=== PATIENT | male | born 1975 | race Caucasian/White ===

== ENCOUNTER 2017-03-04 07:12 | Emergency (ER) | payer OTHER ==
[2017-03-04 07:18] VITALS: TEMP 97.9
--- NOTE | 2017-03-04 07:32 | EDPHY ---
H & P Time Seen by Provider: 03/04/17 07:19 HPI/ROS: CHIEF COMPLAINT: Abdominal pain HISTORY OF PRESENT ILLNESS: Otherwise healthy, no previous abdominal surgeries. Developed pain in the right flank on Friday and then yesterday felt well. Today as pain in the right lower quadrant not better worse with movement or oral intake. Moderate severity, 6/10. Had some nausea and vomiting on Friday. Of note he felt like yesterday he had urinary urgency and frequency but no dysuria and hematuria associated. Pain does not radiate to the groin or testicles. REVIEW OF SYSTEMS: Eye: no change in vision ENT: no sore throat Cardiac: no chest pain or syncope Pulmonary: no cough or SOB Abdomen: HPI Musculoskeletal: HPI Skin: no rash Neuro: no headache Constitutional: no fever : no urinary symptoms A comprehensive 10 point review of systems is otherwise negative aside from elements mentioned in the history of present illness. PAST MEDICAL HISTORY: Negative Social history: Nonsmoker, no family history of kidney stones. General Appearance: Alert and conversant, cooperative. Eyes: No scleral icterus. ENT, Mouth: Normal mucous membranes. Respiratory: Normal respiratory effort, breath sounds equal, lungs are clear to auscultation. Cardiovascular: Regular rate and rhythm. Gastrointestinal: Abdomen is soft and non tender. No pulsatile mass, no hernia. No McBurney's point tenderness. Neurological: Alert and oriented x3. Normally conversant. Face symmetric, normal movement and sensation in all extremities. Skin: Warm and dry, no rashes. Musculoskeletal: No peripheral edema and no joint swelling. Psychiatric: Not agitated. Emergency Department course/MDM: I-STAT, Toradol 15 mg IV, CT scanning to evaluate for renal colic. 1001: 2 mm right UVJ stone with hydronephrosis per Dr. Vanegas. 1042: Re-examined, feels fine, stable for discharge. Smoking Status: Never smoked Constitutional: Initial Vital Signs Temperature (C) 36.6 C 03/04/17 07:16 Heart Rate 79 03/04/17 07:16 Respiratory Rate 17 03/04/17 07:16 Blood Pressure 162/111 H 03/04/17 07:16 O2 Sat (%) 97 03/04/17 07:16 O2 Delivery Mode Room Air Allergies/Adverse Reactions: No Known Allergies Allergy (Verified 03/04/17 07:15) Home Medications: Medication Instructions Recorded Hydrocodone/APAP [[place] 1 - 2 tab PO Q4-6PRN PRN #7 tab 03/04/17 5/325] Medical Decision Making - Diagnostics Imaging Results: Imaging Impressions Abdomen/Pelvis CT 03/04/17 07:30 Impression: 2 mm distal right ureteral stone near the ureterovesical junction, causing mild obstruction. Findings discussed with Pillo Colmenares at 1010 hours 03/04/2017. Final report concurs with initial preliminary interpretation. Attention: This examination does not use radiographic contrast, and as such, provides only a limited evaluation of the abdomen, pelvis, and retroperitoneum. If there is further clinical suspicion for pathological conditions, a complete CT evaluation of the abdomen and pelvis utilizing intravenous, oral, and rectal contrast should be considered. Differential Diagnosis: Differential diagnosis considered for abdominal pain including but not limited to renal colic, appendicitis, cholecystitis, pancreatitis, gastritis and urinary tract infection. - Data Points Laboratory Results: 03/04/17 03/04/17 07:30 07:23 POC Hgb 17.3 gm/dL gm/dL (13.7-17.5) POC Hct 51 % % (40-51) POC Sodium 144 mEq/L mEq/L (134-144) POC Potassium 3.3 mEq/L mEq/L (3.3-5.0) POC Chloride 98 mEq/L mEq/L (97-110) POC BUN 24 mg/dL H mg/dL (7-23) POC Creatinine 1.2 mg/dL mg/dL (0.7-1.3) POC Glucose 110 mg/dL H mg/dL (70-100) Urine Color YELLOW Urine Appearance CLEAR Urine pH 5.0 (5.0-7.5) Ur Specific [place] 1.028 (1.002-1.030) Urine Protein NEGATIVE (NEGATIVE) Urine Ketones NEGATIVE (NEGATIVE) Urine Blood 1+ H (NEGATIVE) Urine Nitrate NEGATIVE (NEGATIVE) Urine Bilirubin NEGATIVE (NEGATIVE) Urine Urobilinogen NEGATIVE EU EU (0.2-1.0) Ur Leukocyte Esterase NEGATIVE (NEGATIVE) Urine RBC 5-10 /hpf H /hpf (0-3) Urine WBC 5-10 /hpf H /hpf (0-3) Ur Epithelial Cells TRACE /lpf /lpf (NONE-1+) Urine Mucus 1+ /lpf /lpf (NONE-1+) Urine Glucose NEGATIVE (NEGATIVE) Medications Given: Discontinued Medications Ketorolac Tromethamine (Toradol) 15 mg IVP EDNOW ONE Stop: 03/04/17 07:46 Last Admin: 03/04/17 07:50 Dose: 15 mg Point of Care Test Results: 03/04/17 07:23 POC Sodium 144 POC Potassium 3.3 POC Chloride 98 POC BUN 24 H POC Creatinine 1.2 POC Glucose 110 H Departure - Departure Disposition: Home, Routine, Self-Care Clinical Impression: Renal colic on right side Condition: Good Instructions: Hydrocodone/Acetaminophen (By mouth), Renal Colic (ED) Referrals: Jenni Hart MD [[facility] [place] Primary Care Provider] - As per Instructions (primary care) Darion Santos MD [Medical Doctor] - As per Instructions (urology) Prescriptions: Hydrocodone/APAP 5/325 [[place] 5/325] 1 - 2 tab PO Q4-6PRN PRN #7 tab PRN Reason: For Pain
[2017-03-04] MEDS ORDERED: KETOROLAC 30 MG/1 ML SDV IVP ONE (07:45)
[2017-03-04 08:06] LABS: COLOR YELLOW; LEUKOCYTE ESTERASE,URINE NEGATIVE (NEGATIVE); NITRITE,URINE NEGATIVE (NEGATIVE)
[2017-03-04 08:55] VITALS: O2SAT 96
[2017-03-04 09:11] LABS: MUCUS 1+ /lpf (NONE-1+)
[2017-03-04 10:55] VITALS: BP 144/76; PULSE 82; RESP 18
== END 2017-03-04 10:55 | disposition home or self-care (01) ==
DX: N23 Unspecified renal colic (principal)
CPT/HCPCS: 82947-QW; 96374; J1885